=== PATIENT | female | born 1965 | race Caucasian/White ===

== ENCOUNTER 2017-01-11 22:23 | Emergency (ER) | payer MEDICAID ==
[~2017-01-11] VITALS: Ht 160 cm; Wt 54.4 kg
--- NOTE | 2017-01-11 22:57 | NUR ---
BB SELF FROM HOME. GENERALIZED BODY PAIN X4 DAYS PAIN NO LONGER RELIEVED BY IBUPROFEN. PT AOX4 RR EVEN AND UNLABORED. NO SOB NOTED. NAD NOTED. NO NVD AT THIS TIME. PT GOWNED AND PLACED ON MONITOR WAITING FOR MD HOYOS.
[2017-01-11] MEDS ORDERED: ACETAMINOPHEN 325 MG TABLET PO ONE (23:30)
[2017-01-11 23:31] LABS: APPEARANCE,URINE CLEAR (CLEAR); BILIRUBIN,URINE NEGATIVE (NEGATIVE); BLOOD, URINE 1+ Ery/uL (NEGATIVE); COLOR,URINE YELLOW (YELLOW); KETONES,URINE NEGATIVE (NEGATIVE); LEUKOCYTE ESTERASE ,URINE NEGATIVE (NEGATIVE); NITRITE, URINE NEGATIVE (NEGATIVE); PROTEIN,URINE NEGATIVE (NEGATIVE); UGLUCOSE NEGATIVE (NEGATIVE); UROBILINOGEN,URINE 0.2 EU/dL (0.2)
[2017-01-11] MEDS ORDERED: ACETAMINOPHEN ES 500 MG TABLET ONE (23:35)
[2017-01-11 23:41] LABS: BACTERIA,URINE Few /HPF (None Seen); SQUAMOUS EPITHELIAL CELL,UR Many /HPF (None Seen); WBC,URINE 0-2 /HPF (0-3)
[2017-01-12 00:28] VITALS: BP 135/99
--- NOTE | 2017-01-12 00:29 | NUR ---
Patient discharged to home in stable condition. Written and verbal after care instructions given. Patient verbalizes understanding of instruction. Pt ambulatory with a steady gait. VSS, NAD noted on DC. Denies complaint on DC.
== END 2017-01-12 00:30 | disposition home or self-care (01) ==
LOC: ER 22:25
DX: M79.1 Myalgia (principal); E03.9 Hypothyroidism, unspecified
CPT/HCPCS: 81001; 99283; A4606; Z7610; 81000-TC

== ENCOUNTER 2022-05-03 07:24 | Emergency (ER) | payer MEDICAID ==
[~2022-05-03] VITALS: Ht 165.1 cm; Wt 59.0 kg
[2022-05-03 07:45] LABS: BASOPHILS % (AUTO) 0.3 % (0.0-2.0); EOSINOPHILS % (AUTO) 0.3 % (0.0-6.0); HEMATOCRIT 40 % (33-45); HEMOGLOBIN 13.1 g/dL (11.5-14.8); LYMPHOCYTES # (AUTO) 1.1 K/uL (0.8-4.8); LYMPHOCYTES % (AUTO) 9.7 % (20.0-44.0); MEAN CORPUSCULAR HGB CONC 33 g/dl (31.0-36.0); MEAN CORPUSCULAR VOLUME 92 fL (82-100); MONOCYTES # (AUTO) 0.6 K/uL (0.1-1.30); MONOCYTES % (AUTO) 5.4 % (2.0-12.0); NEUTROPHILS # (AUTO) 9.3 K/uL (1.8-8.9); NEUTROPHILS % (AUTO) 84.3 % (43.0-81.0); PLATELET COUNT (AUTO) 227 K/uL (150-450)
--- NOTE | 2022-05-03 07:50 | NUR ---
C/O BLOOD IN URINE WITH URGENCY AND FREQUENCY SINCE YESTERDAY. PT DENIES FLANK PAIN. PT AMBULATED TO BED WITH STEADY GAIT, PLACED IN BED AND MONITOR. KEPT COMFORTABLE, AWAITING MD ORDERS.
--- NOTE | 2022-05-03 08:40 | NUR ---
URINE SAMPLE COLLECTED AND SENT TO LAB.
[2022-05-03 08:42] LABS: CALCIUM, SERUM 9.3 mg/dL (8.5-10.1); CREATININE 0.7 mg/dL (0.6-1.3); POTASSIUM 3.8 mmol/L (3.5-5.1)
[2022-05-03 08:48] LABS: ALBUMIN 4.4 g/dL (3.4-5.0); BILIRUBIN,TOTAL 0.5 mg/dL (0.2-1.0); TOTAL PROTEIN, SERUM 7.6 g/dL (6.4-8.2)
[2022-05-03 09:23] LABS: BILIRUBIN,URINE NEGATIVE (NEGATIVE); COLOR,URINE DARK YELLOW (YELLOW); LEUKOCYTE ESTERASE ,URINE 3+ (NEGATIVE); NITRITE, URINE NEGATIVE (NEGATIVE); PROTEIN,URINE 1+ mg/dl (NEGATIVE); UGLUCOSE NEGATIVE (NEGATIVE); UROBILINOGEN,URINE 0.2 EU/dL (0.2)
[2022-05-03 09:28] LABS: BACTERIA,URINE Few /HPF (None Seen); SQUAMOUS EPITHELIAL CELL,UR Few /HPF (None Seen); WBC,URINE 21-50 /HPF (0-3)
[2022-05-03] MEDS ORDERED: NITR100C6 PO (09:40)
--- NOTE | 2022-05-03 09:49 | NUR ---
Patient discharged to home in stable condition. Written and verbal after care instructions given. Patient verbalizes understanding of instruction.
[2022-05-03 09:51] VITALS: BP 102/68
== END 2022-05-03 09:52 | disposition home or self-care (01) ==
LOC: ER 07:28
DX: N39.0 Urinary tract infection, site not specified (principal); E03.9 Hypothyroidism, unspecified
CPT/HCPCS: 36415; 80053-TC; 81001; 85025-TC; 85730-TC; 87086-TC

== ENCOUNTER 2024-12-06 17:14 | Emergency (ER) | payer MEDICAID ==
[~2024-12-06] VITALS: Ht 154.9 cm; Wt 49.9 kg
[~2024-12-06 17:14] MED LIST: NITR100C6 PO
[2024-12-06] MEDS ORDERED: MORPHINE SULFATE INJ 4 MG/ML DISP.SYRIN ONE (18:52)
[2024-12-06] MEDS ORDERED: ONDANSETRON HCL/PF 4 MG/2 ML VIAL ONE (18:52)
[2024-12-06] MEDS: MORPHINE SULFATE INJ 2 MG/ML DISP.SYRIN IV ONE (19:02)
[2024-12-06] MEDS: IV NS 0.9% 1,000 ML BAG IV ONE (19:02)
[2024-12-06 19:03] LABS: PLATELET COUNT (AUTO) 245 K/uL (150-450); RED BLOOD CELL COUNT(AUTO) 3.78 MIL/uL (4.0-5.2); RED CELL DISTRIBUTION WIDTH 13.6 % (11.5-15.0); WHITE BLOOD COUNT (AUTO) 4.5 K/uL (4.3-11.0)
[2024-12-06] MEDS: ONDANSETRON HCL/PF 4 MG/2 ML VIAL IV ONE (19:03)
[2024-12-06 19:11] LABS: CALCIUM, SERUM 8.8 mg/dL (8.5-10.1); CREATININE 0.6 mg/dL (0.6-1.3); SODIUM SERUM 140.0 mmol/L (136-145); UREA NITROGEN, BLOOD 9.0 mg/dL (7-18)
[2024-12-06 19:17] LABS: ASPARTATE AMINOTRANSFERASE 13.0 U/L (15-37); TOTAL PROTEIN, SERUM 6.8 g/dL (6.4-8.2)
[2024-12-06] MEDS ORDERED: IOHEXOL-300 100 ML VIAL IV ONE (19:23)
[2024-12-06] MEDS ORDERED: IV NS 0.9% 250 ML IV ONE (19:23)
[2024-12-06] MEDS ORDERED: CT SWABBABLE VALVE TRANS SET 1 EA INFUS.SET MC ONE (19:23)
[2024-12-06 20:20] LABS: APPEARANCE,URINE CLEAR (CLEAR); BLOOD, URINE TRACE Ery/uL (NEGATIVE); LEUKOCYTE ESTERASE ,URINE NEGATIVE (NEGATIVE); NITRITE, URINE NEGATIVE (NEGATIVE); UGLUCOSE NEGATIVE (NEGATIVE)
[2024-12-06 20:26] LABS: PREGNANCY TEST URINE QUAL NEGATIVE (NEGATIVE)
[2024-12-06 20:41] LABS: ADD URINE CULTURE NO; SQUAMOUS EPITHELIAL CELL,UR 0-2 /HPF (None Seen)
[2024-12-06] MEDS ORDERED: AMOX-430 PO (21:52)
[2024-12-06] MEDS ORDERED: AMOX/CLAVULANATE 875 MG TABLET ONE (21:58)
[2024-12-06] MEDS: AMOX/CLAVULANATE 875 MG TABLET PO ONE (21:59)
[2024-12-06 22:13] VITALS: BP 120/77; TEMP 98; O2SAT 99
== END 2024-12-06 22:10 | disposition home or self-care (01) ==
LOC: ER 17:23
DX: K57.32 Diverticulitis of large intestine without perforation or abscess without bleeding (principal); E03.9 Hypothyroidism, unspecified; R07.9 Chest pain, unspecified; R11.0 Nausea
CPT/HCPCS: 99285; 74177; 96374; 71045; 96361; 93005; 85025; 80048; 83690; 80076; 84703; 81001; 36415; 84484; J2405; J7030; J7050; Q9967; 87086-TC; J2270

== ENCOUNTER 2025-02-20 03:41 | Emergency (ER) | payer MEDICAID ==
[~2025-02-20] VITALS: Ht 162.6 cm; Wt 54.4 kg
[~2025-02-20 03:41] MED LIST changes: +AMOX-430 PO
[2025-02-20] MEDS ORDERED: KETOROLAC TROMETHAMINE INJ 30 MG/ML VIAL ONE (04:18)
[2025-02-20] MEDS ORDERED: ONDANSETRON HCL/PF 4 MG/2 ML VIAL ONE (04:18)
[2025-02-20 04:43] LABS: PLATELET COUNT (AUTO) 262 K/uL (150-450); RED BLOOD CELL COUNT(AUTO) 3.89 MIL/uL (4.0-5.2); RED CELL DISTRIBUTION WIDTH 14.1 % (11.5-15.0); WHITE BLOOD COUNT (AUTO) 6.1 K/uL (4.3-11.0)
[2025-02-20] MEDS: IV NS 0.9% 1,000 ML BAG IV ONE (04:48)
[2025-02-20] MEDS: ONDANSETRON HCL/PF 4 MG/2 ML VIAL IVP ONE (04:48)
[2025-02-20] MEDS: KETOROLAC TROMETHAMINE 15 MG/ML VIAL IV ONE (04:48)
[2025-02-20 04:53] LABS: CALCIUM, SERUM 8.4 mg/dL (8.5-10.1); CREATININE 0.7 mg/dL (0.6-1.3); SODIUM SERUM 139.0 mmol/L (136-145); UREA NITROGEN, BLOOD 18.0 mg/dL (7-18)
[2025-02-20 04:59] LABS: APPEARANCE,URINE CLEAR (CLEAR); BLOOD, URINE TRACE-INTA Ery/uL (NEGATIVE); LEUKOCYTE ESTERASE ,URINE NEGATIVE (NEGATIVE); NITRITE, URINE NEGATIVE (NEGATIVE); UGLUCOSE NEGATIVE (NEGATIVE)
[2025-02-20 05:00] LABS: ASPARTATE AMINOTRANSFERASE 18.0 U/L (15-37); TOTAL PROTEIN, SERUM 6.8 g/dL (6.4-8.2)
[2025-02-20] MEDS ORDERED: IOHEXOL-300 100 ML VIAL IV ONE (05:04)
[2025-02-20] MEDS ORDERED: IV NS 0.9% 250 ML IV ONE (05:04)
[2025-02-20] MEDS ORDERED: CT SWABBABLE VALVE TRANS SET 1 EA INFUS.SET MC ONE (05:04)
[2025-02-20 05:21] LABS: ADD URINE CULTURE NO; SQUAMOUS EPITHELIAL CELL,UR 0-2 /HPF (None Seen)
[2025-02-20 07:58] VITALS: BP 106/64; TEMP 98; O2SAT 97
== END 2025-02-20 07:58 | disposition home or self-care (01) ==
LOC: ER 03:46
DX: R10.23 Pelvic and perineal pain bilateral (principal); E03.9 Hypothyroidism, unspecified; K57.30 Diverticulosis of large intestine without perforation or abscess without bleeding; R18.8 Other ascites
CPT/HCPCS: 99285; 74177; 96374; 96361; 96375; 93005; 85025; 80048; 83690; 80076; 81001; 36415; J1885; J2405; J7030; J7050; Q9967

== ENCOUNTER 2025-04-03 10:54 | Inpatient (IN) | payer MEDICAID ==
[~2025-04-03] VITALS: Ht 165.1 cm; Wt 58.1 kg
[2025-04-03 11:29] LABS: PLATELET COUNT (AUTO) 225 K/uL (150-450); RED BLOOD CELL COUNT(AUTO) 3.86 MIL/uL (4.0-5.2); RED CELL DISTRIBUTION WIDTH 14.1 % (11.5-15.0); WHITE BLOOD COUNT (AUTO) 5.4 K/uL (4.3-11.0)
[2025-04-03] MEDS: MORPHINE SULFATE INJ 2 MG/ML DISP.SYRIN IV ONE ×2 (11:30→12:00)
[2025-04-03] MEDS: IV NS 0.9% 500 ML BAG IV ONE (11:30)
[2025-04-03] MEDS: ONDANSETRON HCL/PF 4 MG/2 ML VIAL IVP ONE (11:30)
[2025-04-03] MEDS ORDERED: ONDANSETRON HCL/PF 4 MG/2 ML VIAL ONE ×2 (11:33→12:09)
[2025-04-03] MEDS ORDERED: MORPHINE SULFATE INJ 4 MG/ML DISP.SYRIN ONE ×2 (11:33→12:09)
[2025-04-03 11:35] LABS: CALCIUM, SERUM 8.6 mg/dL (8.5-10.1); CREATININE 0.6 mg/dL (0.6-1.3); SODIUM SERUM 143.0 mmol/L (136-145); UREA NITROGEN, BLOOD 8.0 mg/dL (7-18)
[2025-04-03 11:41] LABS: ASPARTATE AMINOTRANSFERASE 17.0 U/L (15-37); TOTAL PROTEIN, SERUM 7.0 g/dL (6.4-8.2)
[2025-04-03 11:48] LABS: APPEARANCE,URINE CLEAR (CLEAR); BLOOD, URINE TRACE-INTA Ery/uL (NEGATIVE); LEUKOCYTE ESTERASE ,URINE NEGATIVE (NEGATIVE); NITRITE, URINE NEGATIVE (NEGATIVE); UGLUCOSE NEGATIVE (NEGATIVE)
[2025-04-03] MEDS ORDERED: DOCU-141 PO (11:51)
[2025-04-03] MEDS ORDERED: AMOX-430 PO (11:51)
[2025-04-03 11:55] LABS: ADD URINE CULTURE NO; SQUAMOUS EPITHELIAL CELL,UR Few /HPF (None Seen)
[2025-04-03] MEDS: ONDANSETRON HCL/PF 4 MG/2 ML VIAL IV ONE (12:14)
[2025-04-03] MEDS ORDERED: MAGN200T5 PO (12:32)
[2025-04-03] MEDS ORDERED: ERGO500093 PO (12:32)
[2025-04-03] MEDS ORDERED: CRAN425C6 PO (12:32)
[2025-04-03] MEDS ORDERED: CYAN100T44 PO (12:32)
[2025-04-03] MEDS ORDERED: FOLI0.4T6 PO (12:32)
[2025-04-03] MEDS: PIPERACILLIN /TAZOBACTAM 3.375 G in IV D5W 50 ML IV ONE (14:30)
[2025-04-03] MEDS ORDERED: PIPERACI/TAZO 3.375GM/D5W 50ML PB IV ONE (14:40)
[2025-04-03 17:28] VITALS: BP 122/72; TEMP 97.9; O2SAT 100
[2025-04-03] MEDS ORDERED: MAGNESIUM HYDROXIDE 30 ML UDC PO PRN (18:00)
[2025-04-03] MEDS ORDERED: HYDROCODONE/APAP 5/325MG TABLET PO PRN (18:00)
[2025-04-03] MEDS ORDERED: ZOLPIDEM TARTRATE 5 MG TABLET PO PRN (18:00)
[2025-04-03] MEDS ORDERED: HYDROMORPHONE INJ SYRINGE 0.5 MG in IV D5W 50 ML IV PRN (18:00)
[2025-04-03] MEDS ORDERED: Z GUARD REMEDY 4 OZ OINT TP PRN (18:00)
[2025-04-03] MEDS ORDERED: HYDROMORPHONE 1 MG/1 ML DISP.SYRIN IV PRN (18:00)
[2025-04-03] MEDS ORDERED: ACETAMINOPHEN 325 MG TABLET PO PRN (18:00)
[2025-04-03] MEDS ORDERED: ONDANSETRON HCL/PF 4 MG/2 ML VIAL IVP PRN (18:00)
[2025-04-03] MEDS ORDERED: MAG HYDROX/AL HYDROX/SIMETH 30 ML UDC PO PRN (18:00)
[2025-04-03] MEDS ORDERED: IV D5/ 0.9% NACL 1,000 ML IV ONE (19:00)
[2025-04-03 19:13] LABS: AMPHETAMINE, URINE NEGATIVE (NEGATIVE); BARBITURATE, URINE NEGATIVE (NEGATIVE); BENZODIAZEPINE, URINE NEGATIVE (NEGATIVE); CANNABINOID, URINE NEGATIVE (NEGATIVE); COCCAINE, URINE NEGATIVE (NEGATIVE); OPIATE, URINE NEGATIVE (NEGATIVE)
[2025-04-03 20:00] VITALS: BP_SYST 100; BP_SYST 98; BP_DIAS 60; BP_DIAS 62; TEMP 97.5; O2SAT 100
[2025-04-03] MEDS: PIPERACILLIN /TAZOBACTAM 3.375 G in IV D5W 50 ML IV SCH (21:11)
[2025-04-03] MEDS: IV D5/ 0.9% NACL 1,000 ML IV PRN (22:52)
[2025-04-04 07:30] VITALS: BP 94/60; TEMP 97.9; O2SAT 96
[2025-04-04] MEDS ORDERED: CIPR-262 PO (09:29)
[2025-04-04] MEDS ORDERED: PANT40TA2 PO (09:29)
[2025-04-04] MEDS ORDERED: SACC250C9 PO (09:29)
[2025-04-04] MEDS ORDERED: FLUC150T PO (09:29)
[2025-04-04] MEDS: PANTOPRAZOLE 40 MG TABLET.DR PO SCH (09:30)
[2025-04-04] MEDS ORDERED: PIPERACILLIN /TAZOBACTAM 3.375 G in IV D5W 100 ML IV SCH (17:00)
== END 2025-04-04 10:00 | disposition home or self-care (01) | DRG 249 ==
LOC: ER 10:54 → MEDSG1 16:12 → MED 16:16
PROVIDERS: ADMIT Internal Medicine; ATTEND Internal Medicine
DX: A09 Infectious gastroenteritis and colitis, unspecified (principal); D25.9 Leiomyoma of uterus, unspecified; E03.9 Hypothyroidism, unspecified; K57.30 Diverticulosis of large intestine without perforation or abscess without bleeding; E86.0 Dehydration
CPT/HCPCS: 36415; 80048-TC; 80076-TC; 81001; 83690-TC; 85025-TC; 87045-TC; 89055; A4223; G0378; J2270; J2405; J2543; J7030; J7040; J7042; J7060

== ENCOUNTER 2025-04-10 21:46 | Emergency (ER) | payer MEDICAID ==
[~2025-04-10] VITALS: Ht 160 cm; Wt 58.5 kg
[~2025-04-10 21:46] MED LIST changes: -AMOX-430 PO; +CIPR-262 PO; +FLUC150T PO; -NITR100C6 PO; +PANT40TA2 PO; +SACC250C9 PO
[2025-04-10 21:58] VITALS: TEMP 98.5
[2025-04-10] MEDS ORDERED: ONDANSETRON HCL/PF 4 MG/2 ML VIAL ONE (22:18)
[2025-04-10] MEDS: ONDANSETRON HCL/PF 4 MG/2 ML VIAL IM ONE (22:24)
[2025-04-10] MEDS ORDERED: ONDA4TAB5 PO (22:47)
[2025-04-10] MEDS: HYDROCODONE/APAP 5/325MG TABLET PO ONE (22:50)
[2025-04-10] MEDS ORDERED: HYDROCODONE/APAP 5/325MG TABLET ONE (22:51)
[2025-04-10 23:01] VITALS: BP 148/75; O2SAT 99
== END 2025-04-10 23:01 | disposition home or self-care (01) ==
LOC: ER 21:49
DX: R11.2 Nausea with vomiting, unspecified (principal); E03.9 Hypothyroidism, unspecified; Z79.899 Other long term (current) drug therapy; Z91.048 Other nonmedicinal substance allergy status
CPT/HCPCS: 99283; 96372; J2405